=== PATIENT | female | born 1995 | race Caucasian/White ===

== ENCOUNTER → 2018-02-06 | Outpatient (CLI) | payer OTHER ==
--- NOTE | 2018-02-06 15:21 | MAMMOGRAPHY REPORT ---
ULTRASOUND OF LEFT BREAST: 02/06/2018 CLINICAL HISTORY: 22-year-old woman presents with a palpable lump in the upper outer quadrant of the left breast. She reports a walnut sized ovoid lump in the 1:00 left breast that she noticed a few wee ks ago but appears to fluctuate in size with her cycle. No skin erythema or nipple discharge. Family history of breast cancer = mother diagnosed at age 43 and paternal grandmother. COMPARISON: No prior exams were available for comparison. FINDINGS: The patient pointed out the lump in the 1:00 left breast approximately 8 cm from the nipple . On palpation, there is a smooth ovoid plateau of dense tissue measuring approximately 4 x 1 cm. Ta rgeted ultrasound performed directly over this region demonstrates sonographically normal dense gland ular tissue. There is a palpable step-off while scanning with the ultrasound probe but only dense gl andular tissue is evident. There is no suspicious solid or cystic mass. No focal skin thickening or drainable fluid collection. Overall, no targeted sonographic evidence of malignancy in the left vannessa ast. IMPRESSION: ACR BI-RADS CATEGORY 1: NEGATIVE 1. There is no targeted sonographic evidence of malignancy, drainable fluid collection or other susp icious abnormality to explain the fluctuating palpable lump in the left upper outer quadrant. Theref ore, continued clinical follow-up is recommended, as biopsy of a clinically suspicious mass should no t be precluded by negative imaging. 2. With the patient's reported family history of breast cancer, including mother diagnosed at age 43 , current recommendations include beginning screening mammography at age 33. The patient would also l ikely qualify for screening breast MRI as well at age 33. These results and recommendations were discussed with the patient at the time of the exam. Makenzie Mcguire M.D. ay/:02/06/2018 14:24:57 Adding Machine Mechanic: Makenzie Mcguire, [facility] letter sent: Normal 1/2 BI-RADS Code: ACR BI-RADS Category 1: Negative
== END | disposition home or self-care (01) ==
LOC: C.MAMM 13:56
PROVIDERS: ATTEND Internal Medicine
DX: N63.20 Unspecified lump in the left breast, unspecified quadrant (principal)